=== PATIENT | male | born 1950 | race African-American/Black ===

== ENCOUNTER 2017-06-06 10:49 | Observation (INO) | payer OTHER ==
[~2017-06-06] VITALS: Ht 185.4 cm; Wt 107.7 kg
[~2017-06-06 10:49] MED LIST: 5-HTP50 MG PO; ATENOLOL50 MG PO; Diabeta,Micronase PO; ENALAPRIL MALEA20 MG PO; Ecotrin PO; GABAPENTIN300 MG PO; GLUCOVANCE 21 TABLET PO; HYDROCHLOROTHIA25 MG PO; Hydrodiuril,Oretic,E PO; LOW DOSE ASPIRI81 M2 PO; NOVOLOG MI100 UNIT/M SC; Neurontin PO; PROTONIX40 MG PO; Protonix PO; Vasotec PO; ZOCOR40 MG PO; Zocor PO
[2017-06-06 11:26] LABS: HEMATOCRIT 35.4 % (38.0-50.0); HEMOGLOBIN 11.6 G/DL (12.5-16.6); MCH 26.1 PG (29.0-34.0); MCHC 32.8 G/DL (30.0-36.0); MCV 79.7 FL (86-99); PLATELET COUNT 230 K/uL (156-360); RBC DIS.WIDTH-CV 15.3 % (11.8-14.6); RBC DIS.WIDTH-SD 44.6 % (39-53); RED BLOOD COUNT 4.44 M/uL (4.00-5.50); WHITE BLOOD COUNT 18.4 K/uL (4.1-10.2)
[2017-06-06 11:36] LABS: ALBUMIN 3.9 g/dL (3.2-4.8); CHLORIDE 98 mEq/L (99-109); POTASSIUM 4.4 mEq/L (3.7-5.4); SODIUM 132 mEq/L (136-147)
[2017-06-06 11:39] LABS: TOTAL PROTEIN 8.1 g/dL (6.4-8.3)
[2017-06-06 11:40] LABS: TOTAL BILIRUBIN 0.6 mg/dL (0.0-1.0)
[2017-06-06 11:42] LABS: ALKALINE PHOSPHATASE 106 IU/L (3-129); CREATININE 2.1 mg/dL (0.6-1.3); GFR ESTIMATE (CALCULATED) 41 mL/min/ (58.99-99999)
[2017-06-06 11:43] LABS: UREA NITROGEN (BUN) 33 mg/dL (9-23)
[2017-06-06 11:44] LABS: AST (GOT) 12 IU/L (2-34)
[2017-06-06 11:45] LABS: ALT (GPT) 16 IU/L (3-49)
[2017-06-06 11:55] LABS: GLUCOSE 548 mg/dL (70-99)
[2017-06-06] MEDS ORDERED: IRON325 M1 PO (13:38)
[2017-06-06] MEDS ORDERED: AMMONIUM LACTA224 GM TP (13:39)
[2017-06-06] MEDS ORDERED: FLOMAX0.4 MG PO (13:41)
[2017-06-06] MEDS ORDERED: MOTRIN400 MG PO (13:41)
[2017-06-06] MEDS ORDERED: VASOTEC20 MG PO (13:42)
[2017-06-06] MEDS ORDERED: NEURONTIN300 MG PO (13:42)
[2017-06-06] MEDS ORDERED: PROTONIX40 MG PO (13:43)
[2017-06-06] MEDS ORDERED: BRIMONIDINE TART5 ML BOTH EYES (13:43)
[2017-06-06] MEDS ORDERED: LATANOPROST2.5 ML BOTH EYES (13:44)
[2017-06-06] MEDS ORDERED: KETOTIFEN FUMARA5 M1 BOTH EYES (13:45)
[2017-06-06] MEDS ORDERED: NORVASC2.5 MG PO (13:45)
[2017-06-06] MEDS ORDERED: NOVOLIN,HU100 UNITS/ SC (13:46)
[2017-06-06] MEDS ORDERED: GLUCOPHAGE1000 MG PO (13:47)
[2017-06-06] MEDS ORDERED: LIPITOR80 MG PO (13:47)
[2017-06-06 14:05] LABS: TROP-I INTERPRETATION NEGATIVE; TROPONIN-I < 0.01 ng/mL (0.0-0.30)
[2017-06-06 15:38] LABS: APPEARANCE SL.HAZY ((CLEAR)); BILIRUBIN NEGATIVE; BLOOD SMALL; COLOR YELLOW ((YELLOW)); GLUCOSE (STRIP) >=500; KETONES NEGATIVE; LEUKOCYTES MODERATE; NITRITE NEGATIVE; PROTEIN (STRIP) 100; SPECIFIC GRAVITY 1.023 (1.000-1.030); UROBILINOGEN 0.2 MG/DL (0.2-1.0)
[2017-06-06 15:42] LABS: BACTERIA RARE /HPF; EPITHELIAL CELLS RARE /HPF; MUCUS TRACE /LPF; RED BLOOD CELLS 0-5 /HPF (0-5); UCUL ADDED? YES; WHITE BLOOD CELLS TNTC /HPF (0-5)
[2017-06-06 18:30] VITALS: BP 147/72
[2017-06-06 19:40] VITALS: BP 152/62
[2017-06-06] MEDS ORDERED: TRAZODONE HCL50 MG PO (21:59)
[2017-06-06 23:10] VITALS: BP 134/68
[2017-06-07 04:25] VITALS: BP 151/86
[2017-06-07 08:55] VITALS: BP 152/69
[2017-06-07 11:10] VITALS: BP 134/68
[2017-06-07 13:17] LABS: HEMATOCRIT 35.4 % (38.0-50.0); HEMOGLOBIN 10.9 G/DL (12.5-16.6); MCH 25.2 PG (29.0-34.0); MCHC 30.8 G/DL (30.0-36.0); MCV 81.9 FL (86-99); RBC DIS.WIDTH-CV 15.4 % (11.8-14.6); RBC DIS.WIDTH-SD 46.4 % (39-53); RED BLOOD COUNT 4.32 M/uL (4.00-5.50); WHITE BLOOD COUNT 18.3 K/uL (4.1-10.2)
[2017-06-07 13:46] LABS: ALBUMIN 3.5 G/DL (3.2-4.8); CHLORIDE 104 MEQ/L (99-109); POTASSIUM 3.9 MEQ/L (3.7-5.4); TOTAL BILIRUBIN 0.4 MG/DL (0.0-1.0)
[2017-06-07 13:47] LABS: SODIUM 139 MEQ/L (136-147)
[2017-06-07 13:51] LABS: ALKALINE PHOSPHATASE 97 IU/L (3-129); ALT (GPT) 14 IU/L (3-49); AST (GOT) 17 IU/L (2-34); GFR ESTIMATE (CALCULATED) 56 mL/min/ (58.99-99999); TOTAL PROTEIN 7.1 G/DL (6.4-8.3); UREA NITROGEN (BUN) 29 mg/dL (9-23)
[2017-06-07 13:58] LABS: CREATININE 1.6 MG/DL (0.6-1.3); GLUCOSE 73 mg/dL (70-99)
[2017-06-07 14:04] LABS: PLATELET COUNT 226 K/uL (156-360)
[2017-06-07 16:51] VITALS: BP 148/68
[2017-06-07 20:08] VITALS: BP 143/68
[2017-06-07 23:00] VITALS: BP 160/75; BP 160/82
[2017-06-08 03:49] VITALS: BP 143/68
[2017-06-08 05:33] LABS: BASOPHIL (%) 0.4 % (0-1); EOSINOPHIL (%) 0.2 % (0-5); HEMATOCRIT 31.2 % (38.0-50.0); HEMOGLOBIN 10.1 G/DL (12.5-16.6); IMMATURE GRANULOCYTE (%) 0.7 % (0.0-0.7); LYMPHOCYTE (%) 15.1 % (15-42); LYMPHOCYTE COUNT 1.7 K/uL (1.0-2.8); MCH 26.3 PG (29.0-34.0); MCHC 32.4 G/DL (30.0-36.0); MCV 81.3 FL (86-99); MONOCYTE (%) 9.4 % (3-12); MONOCYTE COUNT 1.1 K/uL (0-0.8); NEUTROPHIL (%) 74.2 % (45-76); NEUTROPHIL COUNT 8.4 K/uL (1.8-6.4); PLATELET COUNT 217 K/uL (156-360); RBC DIS.WIDTH-CV 15.6 % (11.8-14.6); RBC DIS.WIDTH-SD 46.2 % (39-53); RED BLOOD COUNT 3.84 M/uL (4.00-5.50); WHITE BLOOD COUNT 11.3 K/uL (4.1-10.2)
[2017-06-08 05:58] LABS: CHLORIDE 107 MEQ/L (99-109); CREATININE 1.4 MG/DL (0.6-1.3); GFR ESTIMATE (CALCULATED) > 59 mL/min/ (58.99-99999); GLUCOSE 81 mg/dL (70-99); POTASSIUM 3.7 MEQ/L (3.7-5.4); SODIUM 139 MEQ/L (136-147); UREA NITROGEN (BUN) 28 mg/dL (9-23)
[2017-06-08 07:16] VITALS: BP 132/62
[2017-06-08 11:22] VITALS: BP 128/62
[2017-06-08] MEDS ORDERED: BACTRIM,SEPT1 TABLET PO (11:36)
== END 2017-06-08 13:10 | disposition home or self-care (01) ==
LOC: EME 10:49 → EDOF 16:29 → ENRESERV 16:31 → 5WEST 18:06 → ENPENDDIS 06-08 12:58 → 5WEST 06-08 13:10
PROVIDERS: Internal Medicine; Student in an Organized Health Care Education/Training Program
DX: N39.0 Urinary tract infection, site not specified (principal); B96.20 Unspecified Escherichia coli [E. coli] as the cause of diseases classified elsewhere; N17.9 Acute kidney failure, unspecified; E11.65 Type 2 diabetes mellitus with hyperglycemia; E86.0 Dehydration; R78.81 Bacteremia; I12.9 Hypertensive chronic kidney disease with stage 1 through stage 4 chronic kidney disease, or unspecified chronic kidney disease; N18.3 Chronic kidney disease, stage 3 (moderate); E11.22 Type 2 diabetes mellitus with diabetic chronic kidney disease; E78.5 Hyperlipidemia, unspecified; E11.10 Type 2 diabetes mellitus with ketoacidosis without coma; E11.40 Type 2 diabetes mellitus with diabetic neuropathy, unspecified; E66.9 Obesity, unspecified; Z79.4 Long term (current) use of insulin; Z87.891 Personal history of nicotine dependence; D50.9 Iron deficiency anemia, unspecified; E87.1 Hypo-osmolality and hyponatremia; Z83.3 Family history of diabetes mellitus; Z84.1 Family history of disorders of kidney and ureter
CPT/HCPCS: 70450; 71020; 80048; 80053; 81003; 82948; 83605; 84484; 85025; 85027; 87040; 87077; 87086; 87186; 87801; 93005; 99281; 99285; G0378; J0696; J1644; J1815; J7030